=== PATIENT | male | born 1985 ===

== ENCOUNTER 2019-09-29 11:56 | Emergency (ER) | payer SELFPAY ==
[~2019-09-29] VITALS: Ht 185.4 cm; Wt 77.6 kg
[2019-09-29 12:00] VITALS: BP 159/94
--- NOTE | 2019-09-29 13:57 | NUR ---
NIL FOR REVITAL
== END 2019-09-29 14:07 | disposition left against medical advice (07) ==
LOC: ED 13:56
DX: R10.9 Unspecified abdominal pain (principal); Z53.21 Procedure and treatment not carried out due to patient leaving prior to being seen by health care provider